=== PATIENT | male | born 1970 | race Caucasian/White ===

== ENCOUNTER 2016-10-29 13:29 | Emergency (ER) | payer BC ==
[2016-10-29 13:40] VITALS: PULSE 102; RESP 18; TEMP 98.8; O2SAT 90
[2016-10-29 13:44] VITALS: BP 136/94
--- NOTE | 2016-10-29 15:30 | UCPHY ---
H & P Time Seen by Provider: 10/29/16 15:17 Patient Type: Established HPI/ROS: This patient describes 5 day history of cough with mild wheeze. He reports the hacking dry cough and mild chest wall discomfort associated with the coughing. He had fevers the 1st 2 days of the illness subjectively the since resolved. He explains that most years around this time he develops a cough with mild wheeze and wonders if he may have seasonal allergies. However he usually does not have a fever with his seasonal cough and wheeze. ROS: No high fevers or chills. No significant fatigue. HEENT: Mild nasal congestion with the symptoms that is improving. No sinus pain. No headache. No throat pain. Pulmonary: No pleuritic pain. No respiratory distress. No shortness of breath. Cardiovascular: No lightheadedness. No leg swelling. GI: No nausea vomiting. Integumentary: No skin rash. 10 point ROS is otherwise negative. Past Medical/Surgical History: Morbid obesity Smoking Status: Never smoked Physical Exam: Physical Exam Vital signs are normal with exception of borderline tachycardia and mild hypoxia General: Pleasant morbidly obese male who appears clinically well. HEENT: Nose: Clear discharge bilaterally. No sinus tenderness to percussion. Ears: External canals and tympanic membranes are clear with no erythema or abnormal findings bilaterally. Oropharynx: No erythema or exudates. No dysphonia. No drooling or stridor. Neck: Supple Eyes: Pupils equal and react to light. Extraocular motions are intact. Lungs: Minimal expiratory wheeze only with a cough. No rales or rhonchi are noted. Cardiac: Regular rate and rhythm with no murmur gallop or rub Skin: No rash or pallor. Neuro: Alert with no focal deficits noted. Initial differential diagnosis: Viral bronchitis, URI with reactive airway disease, doubt pneumonia given lack of suggestive findings. Constitutional: Initial Vital Signs Temperature (C) 37.1 C 10/29/16 13:32 Heart Rate 102 H 10/29/16 13:32 Respiratory Rate 18 10/29/16 13:32 Blood Pressure 136/94 H 10/29/16 13:32 O2 Sat (%) 90 L 10/29/16 13:32 O2 Delivery Mode Room Air Allergies/Adverse Reactions: No Known Allergies Allergy (Verified 10/29/16 13:41) Home Medications: Medication Instructions Recorded Cetirizine [ZyrTEC 10 mg (*)] 10 mg PO DAILY 07/17/16 Hydrochlorothiazide [HCTZ (*)] 25 mg PO DAILY 07/17/16 Lisinopril [Zestril 40 mg (*)] 40 mg PO DAILY 07/17/16 Omeprazole [Prilosec 20 mg] 20 mg PO DAILY 07/17/16 Albuterol Hfa Anes Only [Proair 2 puffs IH Q4 PRN #1 mdi 10/29/16 Hfa Icu (*)] Fluticasone Hfa 220 Mcg [Flovent 2 puffs IH DAILY #1 mdi 10/29/16 220 MCG Hfa MDI (*)] Fluticasone Propionate 10/29/16 Guaifenesin/Codeine Phosphate 5 - 10 ml PO Q6 PRN #120 ml 10/29/16 [Guaifenesin-Codeine Liquid] Proair Hfa Icu (*) 10/29/16 MDM/Departure - MDM ED Course/Re-evaluation: Discussion: Given seasonal recurrent similar symptoms, I suspect this patient has mild element of reactive airway disease I counseled regarding this. Regarding his borderline hypoxia I feel that this is largely obstructive in nature given his morbid obesity. No clinical findings to suggest lower respiratory infection or sepsis. - Depart Disposition: Home, Routine, Self-Care Clinical Impression: Acute viral bronchitis Condition: Good Instructions: Acute Bronchitis (ED) Additional Instructions: Diagnosis: Acute viral bronchitis Plan: Humidifier Lipitor inhaler spacer for cough, wheeze or shortness of breath as needed Flovent steroid inhaler in addition if her cough is not resolving over the next 5-7 days with albuterol in. Guaifenesin with codeine for cough prevents sleep Return for any significant worsening despite the treatment plan Follow up with primary care physician for any ongoing symptoms despite the treatment plan. Prescriptions: Albuterol Hfa Anes Only [Proair Hfa Icu (*)] 2 puffs IH Q4 PRN #1 mdi PRN Reason: Wheezing Fluticasone Hfa 220 Mcg [Flovent 220 MCG Hfa MDI (*)] 2 puffs IH DAILY #1 mdi Guaifenesin/Codeine Phosphate [Guaifenesin-Codeine Liquid] 5 - 10 ml PO Q6 PRN # 120 ml PRN Reason: Cough Referrals: Aleks James DO [Primary Care Provider] - As per Instructions - PQRS PQRS Measurement: NA
== END 2016-10-29 15:33 | disposition home or self-care (01) ==
LOC: CED 13:29
DX: J20.8 Acute bronchitis due to other specified organisms (principal)
CPT/HCPCS: 99214-PO; G0463-PO

== ENCOUNTER 2016-11-21 11:28 | Emergency (ER) | payer BC ==
--- NOTE | 2016-11-21 12:58 | EDPHY ---
H & P Stated Complaint: cold clammy dizzy-5 year Hx, hasnt gone away today. Time Seen by Provider: 11/21/16 12:44 HPI/ROS: CHIEF COMPLAINT: Transient cold and clammy sensation HISTORY OF PRESENT ILLNESS: 46-year-old male history of hypertension, arrives via private vehicle stating that this morning while he was sitting in a meeting at 7:30 a.m. he felt sudden onset of a "dizziness, cold and clammy feeling, felt like I was going to pass out". This sensation lasted a few minutes and has resolved. He notes prior history of similar which has occurred approximately 6 times the last 5 years. He has never been evaluated for this. No chest pain. No back pain. No dyspnea. No syncope. He has not experienced recent or past dyspnea of exertion or chest pain with exertion. He notes that he is now recovering from gastroenteritis like symptoms including nausea vomiting diarrhea since few days ago to have now resolved. He has had a solid bowel movement this morning. No melena or hematochezia. No hematemesis. Go PRIMARY CARE PROVIDER:Dr. Aleks James REVIEW OF SYSTEMS: A ten point review of systems was performed and is negative with the exception of the items mentioned in the HPI PAST MEDICAL & SURGICAL HISTORY: Hypertension SOCIAL HISTORY: nonsmoker. Social alcohol, 1-2 drinks per week. No cocaine use. Works as a computer numerical control programmer at [employer] FAMILY HISTORY: No family history of premature coronary artery disease PHYSICAL EXAM (Prior to examination, patient consented to physical exam, hands were washed and my usual and customary physical exam procedures followed) 1) GENERAL: Well-developed, well-nourished, alert and oriented. Appears to be in no acute distress. COMP 2) HEAD: Normocephalic, atraumatic 3) HEENT: Pupils equal, round, reactive to light bilaterally. Sclera anicteric. 4) NECK: Full range of motion, no bruit . 5) LUNGS: Clear auscultation bilaterally, no wheezes, no rhonchi, no retractions. 6) HEART: Regular rate and rhythm, no murmur, no heave, no gallop. 7) ABDOMEN: No guarding, no rebound, no focal tenderness, negative McBurney's, 8) MUSCULOSKELETAL: Moving all extremities, no focal areas of tenderness, no obvious trauma. No peripheral edema or discoloration. Negative Homans no palpable cord 9) BACK: No CVA tenderness, no midline vertebral tenderness, no fluctuance, no step-off, no obvious trauma, no visual or palpable abnormality. 10) SKIN: No rash, no petechiae. 11) Psychiatric: Patient is oriented X 3, there is no agitation. DIFFERENTIAL DIAGNOSIS: in no particular order including but not limited to CVA , SC, anxiety - Personal History Current Tetanus/Diphtheria Vaccine: Unsure Current Tetanus Diphtheria and Acellular Pertussis (TDAP): Unsure Tetanus Vaccine Date: WITHIN 10 YRS - Medical/Surgical History Hx Asthma: No Hx Chronic Respiratory Disease: No Hx Diabetes: No Hx Cardiac Disease: Yes Hx Renal Disease: No Hx Cirrhosis: No Hx Alcoholism: No Hx HIV/AIDS: No Hx Splenectomy or Spleen Trauma: No Other PMH: ENLARGED HEART, HTN, ORTHOPEDIC-. RIGHT FOOT PIN-LEFT KNEE SCREW- LEFT ELBOW PIN-LEFT SHOULDER PIN. - Social History Smoking Status: Never smoked Constitutional: Initial Vital Signs Temperature (C) 36.7 C 11/21/16 11:31 Heart Rate 93 11/21/16 11:31 Respiratory Rate 18 11/21/16 11:31 Blood Pressure 138/94 H 11/21/16 11:31 O2 Sat (%) 94 11/21/16 11:31 O2 Delivery Mode Room Air Allergies/Adverse Reactions: No Known Allergies Allergy (Verified 11/21/16 11:35) Home Medications: Medication Instructions Recorded Cetirizine [ZyrTEC 10 mg (*)] 10 mg PO DAILY 07/17/16 Hydrochlorothiazide [HCTZ (*)] 25 mg PO DAILY 07/17/16 Lisinopril [Zestril 40 mg (*)] 40 mg PO DAILY 07/17/16 Omeprazole [Prilosec 20 mg] 20 mg PO DAILY 07/17/16 Albuterol Hfa Anes Only [Proair 2 puffs IH Q4 PRN #1 mdi 10/29/16 Hfa Icu (*)] Medical Decision Making - Diagnostics Imaging: Imaging Impressions Chest X-Ray 11/21/16 12:55 Impression: 1. Query airways disease. 2. No acute cardiopulmonary abnormality is identified. ED Course/Re-evaluation: This patient was re-evaluated with serial examinations. He is asymptomatic follow-up. Case discussed with Dr. Althea Wang in the ER. We think that acute coronary syndrome less than likely in this patient In the absence of chest pain , nausea vomiting, normal troponin. However, did not patient benefit from close follow up with primary care provider and with Cardiology. He has been given these resources. we had a lengthy discussion and informed him that definitely, should he experience chest pain with exertion going to dyspnea with exertion, or any other symptoms, needs to return to the ER immediately for re- evaluation. He feels comfortable with this plan. All questions and concerns addressed by myself. - Data Points Laboratory Results: Laboratory Results 11/21/16 12:15 11/21/16 12:15 11/21/16 11/21/16 12:15 12:15 WBC 8.44 10^3/uL 10^3/uL (3.80-9.50) RBC 5.73 10^6/uL 10^6/uL (4.40-6.38) Hgb 17.4 g/dL g/dL (13.7-17.5) Hct 51.4 % H % (40.0-51.0) MCV 89.7 fL fL (81.5-99.8) MCH 30.4 pg pg (27.9-34.1) MCHC 33.9 g/dL g/dL (32.4-36.7) RDW 13.2 % % (11.5-15.2) Plt Count 328 10^3/uL 10^3/uL (150-400) MPV 9.1 fL fL (8.7-11.7) Neut % (Auto) 48.0 % % (39.3-74.2) Lymph % (Auto) 34.7 % % (15.0-45.0) Frio % (Auto) 14.5 % H % (4.5-13.0) Eos % (Auto) 2.1 % % (0.6-7.6) Baso % (Auto) 0.5 % % (0.3-1.7) Nucleat RBC Rel Count 0.0 % % (0.0-0.2) Absolute Neuts (auto) 4.05 10^3/uL 10^3/uL (1.70-6.50) Absolute Lymphs (auto) 2.93 10^3/uL 10^3/uL (1.00-3.00) Absolute Monos (auto) 1.22 10^3/uL H 10^3/uL (0.30-0.80) Absolute Eos (auto) 0.18 10^3/uL 10^3/uL (0.03-0.40) Absolute Basos (auto) 0.04 10^3/uL 10^3/uL (0.02-0.10) Absolute Nucleated RBC 0.00 10^3/uL 10^3/uL (0-0.01) Immature Gran % 0.2 % % (0.0-1.1) Immature Gran # 0.02 10^3/uL 10^3/uL (0.00-0.10) Sodium 143 mEq/L mEq/L (134-144) Potassium 4.1 mEq/L mEq/L (3.5-5.2) Chloride 105 mEq/L mEq/L (97-110) Carbon Dioxide 24 mEq/l mEq/l (22-31) Anion Gap 14 mEq/L mEq/L (8-16) BUN 15 mg/dL mg/dL (7-23) Creatinine 0.9 mg/dL mg/dL (0.7-1.3) Estimated GFR > 60 Glucose 114 mg/dL H mg/dL (70-100) Calcium 9.2 mg/dL mg/dL (8.5-10.4) Total Bilirubin 0.7 mg/dL mg/dL (0.1-1.4) Conjugated Bilirubin 0.6 mg/dL H mg/dL (0.0-0.5) Unconjugated Bilirubin 0.1 mg/dL mg/dL (0.0-1.1) AST 56 IU/L IU/L (17-59) ALT 110 IU/L H IU/L (21-72) Alkaline Phosphatase 73 IU/L IU/L (38-126) Troponin I < 0.012 ng/mL ng/mL (0-0.034) Total Protein 7.2 g/dL g/dL (6.3-8.2) Albumin 4.2 g/dL g/dL (3.5-5.0) Lipase 66.0 IU/L IU/L (23-300) Departure - Departure Disposition: Home, Routine, Self-Care Clinical Impression: Near syncope Condition: Good Instructions: Near Syncope (ED) Additional Instructions: Call 911 if you developed chest pain, shortness of breath, have feeling that you are going to pass out or any other symptoms that concern you. Is very important that you follow up with the primary care provider and distribution sales manager. Referrals: Aleks James, [Primary Care Provider] - 1 day without fail Sharon Jenkins MD [Medical Doctor] - 1-2 days without fail (Dr Jenkins is a distribution sales manager)
--- NOTE | 2016-11-21 12:59 | CPEKG ---
Heart Rate: 90 RR Interval: 667 P-R Interval: 172 QRSD Interval: 110 QT Interval: 388 QTC Interval: 475 P [place]: 22 QRS [place]: 38 T Wave [place]: -12 EKG Severity - ABNORMAL ECG - EKG Impression: SINUS RHYTHM EKG Impression: NONSPECIFIC INTRAVENTRICULAR CONDUCTION DELAY EKG Impression: PROBABLE INFERIOR INFARCT, AGE INDETERMINATE Electronically Signed By: Kameron Pagan 22-Nov-2016 12:05:44
[2016-11-21 13:00] LABS: % IMMATURE GRANULYOCYTES 0.2 % (0.0-1.1); ABSOLUTE IMMATURE GRANULOCYTES 0.02 10^3/uL (0.00-0.10); ADD DIFF? NO; ADD MORPH? NO; ADD SCAN? NO; ATYPICAL LYMPHOCYTE FLAG 20 (0-99); FRAGMENT RBC FLAG 0 (0-99); HEMATOCRIT 51.4 % (40.0-51.0); HEMOGLOBIN 17.4 g/dL (13.7-17.5); LEFT SHIFT FLG 0 (0-99); LIPEMIA HEMOLYSIS FLAG 90 (0-99); MEAN CELL HEMOGLOBIN 30.4 pg (27.9-34.1); MEAN CELL HEMOGLOBIN CONCENTR. 33.9 g/dL (32.4-36.7); MEAN CELL VOLUME 89.7 fL (81.5-99.8); MEAN PLATELET VOLUME 9.1 fL (8.7-11.7); PLATELET CLUMPS FLAG 0 (0-99); PLATELET COUNT 328 10^3/uL (150-400); RED BLOOD CELL COUNT 5.73 10^6/uL (4.40-6.38); RED CELL DISTRIBUTION WIDTH 13.2 % (11.5-15.2)
[2016-11-21 13:06] LABS: ALANINE AMINOTRANSFERASE 110 IU/L (21-72); ALBUMIN 4.2 g/dL (3.5-5.0); ALKALINE PHOSPHATASE 73 IU/L (38-126); ANION GAP 14 mEq/L (8-16); ASPARTATE AMINOTRANSFERASE 56 IU/L (17-59); BILIRUBIN,TOTAL 0.7 mg/dL (0.1-1.4); BILIRUBIN-CONJUGATED 0.6 mg/dL (0.0-0.5); BILIRUBIN-UNCONJUGATED 0.1 mg/dL (0.0-1.1); CALCIUM 9.2 mg/dL (8.5-10.4); CARBON DIOXIDE 24 mEq/l (22-31); CHLORIDE 105 mEq/L (97-110); CREATININE 0.9 mg/dL (0.7-1.3); GLOMERULAR FILTRATION RATE > 60; GLUCOSE 114 mg/dL (70-100); POTASSIUM 4.1 mEq/L (3.5-5.2); SODIUM 143 mEq/L (134-144); TOTAL PROTEIN 7.2 g/dL (6.3-8.2)
[2016-11-21 13:18] LABS: TROPONIN I < 0.012 ng/mL (0-0.034)
[2016-11-21 13:41] VITALS: BP 129/75; PULSE 79; RESP 16; TEMP 98.2; O2SAT 93
== END 2016-11-21 14:12 | disposition home or self-care (01) ==
DX: R55 Syncope and collapse (principal); I10 Essential (primary) hypertension

== ENCOUNTER → 2016-11-24 | Outpatient (CLI) | payer BC | LOC: FIMAGING 08:11 | PROVIDERS: ATTEND Internal Medicine Gastroenterology | DX: K76.9 Liver disease, unspecified (principal); K82.4 Cholesterolosis of gallbladder ==

== ENCOUNTER → 2017-06-05 | Outpatient (CLI) | payer BC ==
[~2017-06-05] MED LIST: GADOBUTROL 10 ML VIAL IVP ONE
== END ==
LOC: FIMAGING 18:29
PROVIDERS: ATTEND Ophthalmology
DX: Z13.89 Encounter for screening for other disorder (principal)
CPT/HCPCS: A9585

== ENCOUNTER → 2017-10-20 | Outpatient (CLI) | payer BC | LOC: FIMAGING 06:53 | PROVIDERS: ATTEND Specialist | DX: R04.2 Hemoptysis (principal); R91.8 Other nonspecific abnormal finding of lung field ==

== ENCOUNTER → 2017-10-26 | Outpatient (CLI) | payer BC | LOC: CIMAGING 13:58 | PROVIDERS: ATTEND Specialist | DX: J98.4 Other disorders of lung (principal); I25.10 Atherosclerotic heart disease of native coronary artery without angina pectoris | CPT/HCPCS: 71250-PO ==

== ENCOUNTER → 2017-11-26 | Outpatient (CLI) | payer BC | LOC: CIMAGING 07:15 | PROVIDERS: ATTEND Internal Medicine Gastroenterology | DX: K76.89 Other specified diseases of liver (principal); K76.0 Fatty (change of) liver, not elsewhere classified; K82.4 Cholesterolosis of gallbladder | CPT/HCPCS: 76705-PO ==

== ENCOUNTER → 2017-12-24 | Outpatient (CLI) | payer BC | LOC: FIMAGING 07:08 | PROVIDERS: ATTEND Specialist | DX: Z09 Encounter for follow-up examination after completed treatment for conditions other than malignant neoplasm (principal); Z13.83 Encounter for screening for respiratory disorder NEC ==